=== PATIENT | male | born 1950 | race Caucasian/White ===

== ENCOUNTER 2017-05-31 09:58 | Emergency (ER) | payer MEDICARE, OTHER ==
[2017-05-31 10:09] VITALS: BP 154/100
[2017-05-31] MEDS ORDERED: Sodium Chloride 0.9% 10 ML Syringe FLUSH PRN (10:19)
--- NOTE | 2017-05-31 11:30 | EDM.PDOC ---
ED HPI GENERAL MEDICAL PROBLEM - General Chief Complaint: Chest Pain Stated Complaint: CHEST PAIN/DISCOMFORT Time Seen by Provider: 05/31/17 10:05 Source of Information: Reports: Patient History Limitations: Reports: No Limitations - History of Present Illness INITIAL COMMENTS - FREE TEXT/NARRATIVE: 67-year-old male presents for evaluation and treatment of chest discomfort. Patient reports that he started having chest discomfort around 1900 last night. He states that he had trouble sleeping due to anxiety associated with this chest discomfort. Reports at the time that the chest discomfort started he was sitting in his recliner. Its worse rates the pain is at 3 or 4 out of 10. Currently states the pain is now 1 or 2. Reports the chest pain does not radiate into his back or neck. He denies any nausea, vomiting, diaphoresis, lightheadedness, dizziness, syncope or abdominal pain. He is reporting pain in his bilateral arms and low back. He attributes this to lifting yesterday. Reports that he was lifting at least 40 50 pound containers of feed yesterday. He did not experience any chest pain yesterday when he was doing this. Patient reports he has a significant cardiac history to seen in our ER 2015. He was transferred for to [place]. He states that he had 2 angiograms done but did not have any stents placed. He states that he had a clot which resolved with heparin. He has since seen cardiology and last visit with cardiology was on February 28. He has not had any recent stress test. Left Chest Pain Score (Numeric/FACES): 2 - Related Data Allergies Allergy/AdvReac Type Severity Reaction Status Date / Time Penicillins Allergy Rash Verified 05/31/17 10:09 shellfish derived Allergy Hives Verified 05/31/17 10:09 Home Meds: Home Meds Hydrochlorothiazide 25 mg PO DAILY 01/29/16 [History] Metoprolol Succinate [Toprol XL] 25 mg PO DAILY 01/29/16 [History] Clopidogrel [Plavix] 75 mg PO DAILY 05/31/17 [History] Lisinopril 5 mg PO DAILY 05/31/17 [History] Magnesium Oxide 400 mg PO DAILY 05/31/17 [History] Nitroglycerin [Nitrostat] 0.4 mg SL ASDIRECTED 05/31/17 [History] Pantoprazole 20 mg PO DAILY 05/31/17 [History] Ubidecarenone [Co Q-10] 30 mg PO DAILY 05/31/17 [History] atorvaSTATin [Lipitor] 40 mg PO DAILY 05/31/17 [History] Past Medical History HEENT History: Reports: Cataract Cardiovascular History: Reports: CAD, High Cholesterol, Hypertension, [place] Gastrointestinal History: Reports: GERD Genitourinary History: Reports: BPH Musculoskeletal History: Reports: Back Pain, Chronic Neurological History: Reports: Migraines, Other (See Below) Psychiatric History: Reports: Depression - Past Surgical History HEENT Surgical History: Reports: Cataract Surgery, Tonsillectomy Cardiovascular Surgical History: Reports: Other (See Below) Other Cardiovascular Surgeries/Procedures: angiogram x2 Male Surgical History: Reports: Other (See Below) Social & Family History - Tobacco Use Smoking Status *Q: Never Smoker Years of Tobacco use: 30 Packs/Tins Daily: 0.5 Second Hand Smoke Exposure: No - Caffeine Use Caffeine Use: Reports: Coffee - Alcohol Use Days Per Week of Alcohol Use: 0 - Recreational Drug Use Recreational Drug Use: No - Living Situation & Occupation Living situation: Reports: Single, Alone Occupation: Employed ED ROS GENERAL - Review of Systems Review Of Systems: See Below Constitutional: Denies: Fever Respiratory: Denies: Shortness of Breath, Cough Cardiovascular: Reports: Chest Pain ("discomfort") GI/Abdominal: Denies: Abdominal Pain, Nausea, Vomiting Musculoskeletal: Reports: Arm Pain (bilateral). Denies: Neck Pain, Back Pain Neurological: Denies: Headache, Syncope ED EXAM, GENERAL - Physical Exam Exam: See Below Exam Limited By: No Limitations General Appearance: Alert, WD/WN, No Apparent Distress Eye Exam: Bilateral Eye: Normal Inspection Ears: Normal External Exam Nose: Normal Inspection Throat/Mouth: Normal Inspection, Normal Lips, Normal Voice, No Airway Compromise Neck: Normal Inspection Respiratory/Chest: No Respiratory Distress, Lungs Clear, Normal Breath Sounds Cardiovascular: Normal Peripheral Pulses, Regular Rate, Rhythm, No Murmur Peripheral Pulses: 3+: Radial (L), Radial (R), Dorsalis Pedis (L), Dorsalis Pedis (R) GI/Abdominal: Normal Bowel Sounds, Soft, Non-Tender Extremities: Normal Inspection Neurological: Alert, Oriented, Normal Cognition Psychiatric: Normal Affect, Normal Mood Skin Exam: Warm, Dry, Normal Color Course - Vital Signs Last Recorded V/S: Last Vital Signs Temp 36.6 C 05/31/17 10:02 Pulse 82 05/31/17 10:02 Resp 16 05/31/17 10:02 BP 154/100 H 05/31/17 10:02 Pulse Ox 96 05/31/17 10:02 - Orders/Labs/Meds Orders: Active Orders 24 hr Category Date Time Status Cardiac Monitoring [RC] . DIRECTED Care 05/31/17 10:18 Active EKG Documentation Completion [RC] ASDIRECTED Care 05/31/17 10:19 Active Peripheral IV Care [RC] . DIRECTED Care 05/31/17 10:19 Active Peripheral IV Insertion Adult [OM.PC] Routine Oth 05/31/17 10:19 Ordered EKG 12 Lead [EK] Stat Ther 05/31/17 10:18 Ordered Labs: Laboratory Tests 05/31/17 05/31/17 05/31/17 Range/Units 10:08 10:08 10:08 WBC 8.60 (4.23-9.07) K/mm3 RBC 5.28 (4.63-6.08) M/mm3 Hgb 16.1 (13.7-17.5) gm/L Hct 46.1 (40.1-51.0) % MCV 87.3 (79.0-92.2) fl MCH 30.5 (25.7-32.2) pg MCHC 34.9 (32.2-35.5) g/dl RDW Std Deviation 44.0 H (35.1-43.9) fL Plt Count 274 (163-337) K/mm3 MPV 10.3 (9.4-12.3) fl Neut % (Auto) 68.3 H (34.0-67.9) % Lymph % (Auto) 21.4 L (21.8-53.1) % [place] % (Auto) 9.3 (5.3-12.2) % Eos % (Auto) 0.7 L (0.8-7.0) Baso % (Auto) 0.2 (0.1-1.2) % Neut # (Auto) 5.87 H (1.78-5.38) K/mm3 Lymph # (Auto) 1.84 (1.32-3.57) K/mm3 [place] # (Auto) 0.80 (0.30-0.82) K/mm3 Eos # (Auto) 0.06 (0.04-0.54) K/mm3 Baso # (Auto) 0.02 (0.01-0.08) K/mm3 PT 10.7 (8.0-13.0) SECONDS INR 0.98 APTT 26 (22-36) SECONDS D-Dimer, Quantitative (0.19-0.59) mg/L Sodium 135 L (136-145) mEq/L Potassium 3.8 (3.5-5.1) mEq/L Chloride 102 (98-107) mEq/L Carbon Dioxide 23 (21-32) mEq/L Anion Gap 13.8 (5-15) BUN 16 (7-18) mg/dL Creatinine 1.1 (0.7-1.3) mg/dL Est Cr Clr Drug Dosing 62.18 mL/min Estimated GFR (MDRD) > 60 (>60) mL/min BUN/Creatinine Ratio 14.5 (14-18) Glucose 107 (80-115) mg/dL Calcium 9.0 (8.5-10.1) mg/dL Total Bilirubin 0.6 (0.2-1.0) mg/dL AST 29 (15-37) U/L ALT 38 (16-63) U/L Alkaline Phosphatase 58 (46-116) U/L CK-MB (CK-2) 5.1 H (0-3.6) ng/ml Troponin I < 0.017 (0.00-0.056) ng/mL Total Protein 7.3 (6.4-8.2) g/dl Albumin 3.8 (3.4-5.0) g/dl Globulin 3.5 gm/dL Albumin/Globulin Ratio 1.1 (1-2) 05/31/17 Range/Units 10:08 WBC (4.23-9.07) K/mm3 RBC (4.63-6.08) M/mm3 Hgb (13.7-17.5) gm/L Hct (40.1-51.0) % MCV (79.0-92.2) fl MCH (25.7-32.2) pg MCHC (32.2-35.5) g/dl RDW Std Deviation (35.1-43.9) fL Plt Count (163-337) K/mm3 MPV (9.4-12.3) fl Neut % (Auto) (34.0-67.9) % Lymph % (Auto) (21.8-53.1) % [place] % (Auto) (5.3-12.2) % Eos % (Auto) (0.8-7.0) Baso % (Auto) (0.1-1.2) % Neut # (Auto) (1.78-5.38) K/mm3 Lymph # (Auto) (1.32-3.57) K/mm3 [place] # (Auto) (0.30-0.82) K/mm3 Eos # (Auto) (0.04-0.54) K/mm3 Baso # (Auto) (0.01-0.08) K/mm3 PT (8.0-13.0) SECONDS INR APTT (22-36) SECONDS D-Dimer, Quantitative 0.41 (0.19-0.59) mg/L Sodium (136-145) mEq/L Potassium (3.5-5.1) mEq/L Chloride (98-107) mEq/L Carbon Dioxide (21-32) mEq/L Anion Gap (5-15) BUN (7-18) mg/dL Creatinine (0.7-1.3) mg/dL Est Cr Clr Drug Dosing mL/min Estimated GFR (MDRD) (>60) mL/min BUN/Creatinine Ratio (14-18) Glucose (80-115) mg/dL Calcium (8.5-10.1) mg/dL Total Bilirubin (0.2-1.0) mg/dL AST (15-37) U/L ALT (16-63) U/L Alkaline Phosphatase (46-116) U/L CK-MB (CK-2) (0-3.6) ng/ml Troponin I (0.00-0.056) ng/mL Total Protein (6.4-8.2) g/dl Albumin (3.4-5.0) g/dl Globulin gm/dL Albumin/Globulin Ratio (1-2) Meds: Medications Discontinued Medications Generic Name Dose Route Start Last Admin Trade Name Freq PRN Reason Stop Dose Admin Sodium Chloride 10 ml 05/31/17 10:19 Saline Flush FLUSH ASDIRECTED PRN Keep Vein Open - Radiology Interpretation Free Text/Narrative:: Chest: Frontal view of the chest was obtained. Comparison: Prior chest x-ray of 01/29/16. Heart size is normal. Tortuous thoracic aorta is seen. Lungs are clear. Old left clavicle fracture is noted. Impression: 1. Incidental findings. Nothing acute is appreciated on frontal chest x-ray. - Re-Assessments/Exams Free Text/Narrative Re-Assessment/Exam: 05/31/17 11:44 I reviewed the labs, EKG and imaging with the patient. I feel that this is likely chest wall in origin likely from lifting yesterday. We will discharge him home. Discharge instructions as documented. Departure - Departure Time of Disposition: 11:44 Disposition: Home, Self-Care 01 Condition: Good Clinical Impression: Chest wall pain Instructions: Chest Wall Pain, [id number] Referrals: Caroline Montes MD [Primary Care Provider] - Forms: ED Department Discharge Additional Instructions: [id number] Tylenol as needed for pain relief. May also use heat to the sore areas for additional pain relief. Follow-up with your primary care provider within 2 weeks for recheck of your symptoms. Please return to the ER if your symptoms change or worsen. - My Orders Last 24 Hours: My Active Orders 05/31/17 10:18 Cardiac Monitoring [RC] . DIRECTED EKG 12 Lead [EK] Stat 05/31/17 10:19 EKG Documentation Completion [RC] ASDIRECTED Peripheral IV Care [RC] . DIRECTED Peripheral IV Insertion Adult [OM.PC] Routine - Assessment/Plan Last 24 Hours: My Active Orders 05/31/17 10:18 Cardiac Monitoring [RC] . DIRECTED EKG 12 Lead [EK] Stat 05/31/17 10:19 EKG Documentation Completion [RC] ASDIRECTED Peripheral IV Care [RC] . DIRECTED Peripheral IV Insertion Adult [OM.PC] Routine
--- NOTE | 2017-05-31 12:50 | CR ---
Chest: Frontal view of the chest was obtained. Comparison: Prior chest x-ray of 01/29/16. Heart size is normal. Tortuous thoracic aorta is seen. Lungs are clear. Old left clavicle fracture is noted. Impression: 1. Incidental findings. Nothing acute is appreciated on frontal chest x-ray. Diagnostic code #2
== END 2017-05-31 11:58 | disposition home or self-care (01) ==
LOC: JD.ED 09:58
DX: R07.89 Other chest pain (principal); I25.2 Old myocardial infarction; E78.00 Pure hypercholesterolemia, unspecified; K21.9 Gastro-esophageal reflux disease without esophagitis; Z88.0 Allergy status to penicillin; Z91.013 Allergy to seafood; Z79.899 Other long term (current) drug therapy
CPT/HCPCS: 36415; 71045; 71045-26; 80053; 82553; 84484; 85025; 85379; 85610; 85730; 93005; 93010; 99284; 99285-25

== ENCOUNTER 2019-07-01 10:36 | Emergency (ER) | payer MEDICARE, OTHER ==
--- NOTE | 2019-07-01 13:12 | EDM.PDOC ---
ED HPI GENERAL MEDICAL PROBLEM - General Chief Complaint: Cardiovascular Problem Stated Complaint: CHEST TIGHTNESS/SHAKINESS Time Seen by Provider: 07/01/19 10:50 Source of Information: Reports: Patient History Limitations: Reports: No Limitations - History of Present Illness INITIAL COMMENTS - FREE TEXT/NARRATIVE: The patient presents with some mild chest pain and shortness of breath. He unloaded lots of cow feed yesterday and has some mild soreness in his chest. He has no fever, chills or cough. He has no history of heart disease. He has no abdominal pain, nausea or vomiting. He has a tremor for months. He did try some THC but it did not help. He is seeing a neurologist in September. He has calving to do before then. Onset: Gradual Duration: Day(s): Location: Reports: Chest Quality: Reports: Ache (soreness) Severity: Mild Improves with: Reports: None Worsens with: Reports: None Associated Symptoms: Reports: Chest Pain, Shortness of Breath. Denies: Cough, Fever/Chills, Headaches, Nausea/Vomiting Chest Pain Score (Numeric/FACES): 1 - Related Data Allergies Allergy/AdvReac Type Severity Reaction Status Date / Time Penicillins Allergy Rash Verified 07/01/19 10:55 shellfish derived Allergy Hives Verified 07/01/19 10:55 Home Meds: Home Meds Hydrochlorothiazide 25 mg PO DAILY 01/29/16 [History] Metoprolol Succinate [Toprol XL] 25 mg PO DAILY 01/29/16 [History] Clopidogrel [Plavix] 75 mg PO DAILY 05/31/17 [History] Lisinopril 5 mg PO DAILY 05/31/17 [History] Magnesium Oxide 400 mg PO DAILY 05/31/17 [History] Nitroglycerin [Nitrostat] 0.4 mg SL ASDIRECTED 05/31/17 [History] Pantoprazole 20 mg PO DAILY 05/31/17 [History] atorvaSTATin [Lipitor] 40 mg PO DAILY 05/31/17 [History] Fish Oil/[place]-3 Fatty Acids [Fish Oil 1,000 MG] 1,000 mg PO BID 11/20/17 [ History] Hemp Oil 20 mg PO DAILY 07/01/19 [History] Primidone 50 mg PO DAILY #30 tablet 07/01/19 [Rx] Propranolol [Inderal LA] 80 mg PO DAILY #30 cap.er 07/01/19 [Rx] Past Medical History HEENT History: Reports: Cataract, Impaired Vision Other HEENT History: Wears glasses Cardiovascular History: Reports: CAD, High Cholesterol, Hypertension, [place] Gastrointestinal History: Reports: GERD Genitourinary History: Reports: BPH Musculoskeletal History: Reports: Arthritis, Back Pain, Chronic, Fracture Neurological History: Reports: Migraines, Other (See Below) Other Neuro History: tremors of unknown origin. Psychiatric History: Reports: Depression - Infectious Disease History Infectious Disease History: Reports: C-Difficile, Chicken Pox, Measles, Mumps - Past Surgical History HEENT Surgical History: Reports: Cataract Surgery, Tonsillectomy Cardiovascular Surgical History: Reports: Other (See Below) Other Cardiovascular Surgeries/Procedures: angiogram x2 Social & Family History - Tobacco Use Smoking Status *Q: Never Smoker Second Hand Smoke Exposure: No - Caffeine Use Caffeine Use: Reports: Coffee - Alcohol Use Days Per Week of Alcohol Use: 7 Number of Drinks Per Day: 4 Total Drinks Per Week: 28 - Recreational Drug Use Recreational Drug Use: No - Living Situation & Occupation Living situation: Reports: Single, Alone Occupation: Employed ED ROS GENERAL - Review of Systems Review Of Systems: See Below Constitutional: Reports: No Symptoms HEENT: Reports: No Symptoms Respiratory: Reports: Shortness of Breath Cardiovascular: Reports: Chest Pain Endocrine: Reports: No Symptoms GI/Abdominal: Reports: No Symptoms : Reports: No Symptoms Musculoskeletal: Reports: No Symptoms ED EXAM, GENERAL - Physical Exam Exam: See Below Exam Limited By: No Limitations General Appearance: Alert, No Apparent Distress Ears: Normal External Exam Nose: Normal Inspection Head: Atraumatic, Normocephalic Neck: Normal Inspection Respiratory/Chest: No Respiratory Distress, Lungs Clear, Normal Breath Sounds Cardiovascular: Regular Rate, Rhythm, No Edema, No Murmur GI/Abdominal: Soft, Non-Tender, No Organomegaly, No Mass Back Exam: Normal Inspection Neurological: Alert, Oriented, No Motor/Sensory Deficits, Other (Essential tremor to both hands) EKG INTERPRETATION EKG Date: 07/01/19 Time: 10:41 Rhythm: NSR Rate (Beats/Min): 76 Walker: Normal P-Wave: Present QRS: Normal ST-T: Normal QT: Normal Course - Vital Signs Last Recorded V/S: Last Vital Signs Temp 99.3 F 07/01/19 10:40 Pulse 76 07/01/19 12:00 Resp 18 07/01/19 12:00 BP 140/80 07/01/19 12:00 Pulse Ox 97 07/01/19 12:00 - Orders/Labs/Meds Orders: Active Orders 24 hr Category Date Time Status Cardiac Monitoring [RC] . DIRECTED Care 07/01/19 11:16 Active EKG Documentation Completion [RC] STAT Care 07/01/19 11:16 Active Labs: Laboratory Tests 07/01/19 07/01/19 Range/Units 10:45 10:45 WBC 8.75 (4.23-9.07) K/mm3 RBC 4.99 (4.63-6.08) M/mm3 Hgb 15.6 (13.7-17.5) gm/dl Hct 46.0 (40.1-51.0) % MCV 92.2 (79.0-92.2) fl MCH 31.3 (25.7-32.2) pg MCHC 33.9 (32.2-35.5) g/dl RDW Std Deviation 49.1 H (35.1-43.9) fL Plt Count 261 (163-337) K/mm3 MPV 9.6 (9.4-12.3) fl Neut % (Auto) 74.0 H (34.0-67.9) % Lymph % (Auto) 16.0 L (21.8-53.1) % [place] % (Auto) 8.5 (5.3-12.2) % Eos % (Auto) 0.6 L (0.8-7.0) Baso % (Auto) 0.3 (0.1-1.2) % Neut # (Auto) 6.48 H (1.78-5.38) K/mm3 Lymph # (Auto) 1.40 (1.32-3.57) K/mm3 [place] # (Auto) 0.74 (0.30-0.82) K/mm3 Eos # (Auto) 0.05 (0.04-0.54) K/mm3 Baso # (Auto) 0.03 (0.01-0.08) K/mm3 Sodium 133 L (136-145) mEq/L Potassium 4.1 (3.5-5.1) mEq/L Chloride 98 (98-107) mEq/L Carbon Dioxide 24 (21-32) mEq/L Anion Gap 15.1 H (5-15) BUN 19 H (7-18) mg/dL Creatinine 1.2 (0.7-1.3) mg/dL Est Cr Clr Drug Dosing 55.42 mL/min Estimated GFR (MDRD) 60 (>60) mL/min BUN/Creatinine Ratio 15.8 (14-18) Glucose 123 H (80-115) mg/dL Calcium 8.9 (8.5-10.1) mg/dL Magnesium 1.7 L (1.8-2.4) mg/dl Total Bilirubin 0.4 (0.2-1.0) mg/dL AST 66 H (15-37) U/L ALT 74 H (16-63) U/L Alkaline Phosphatase 52 (46-116) U/L Troponin I < 0.017 (0.00-0.056) ng/mL Total Protein 6.9 (6.4-8.2) g/dl Albumin 3.8 (3.4-5.0) g/dl Globulin 3.1 gm/dL Albumin/Globulin Ratio 1.2 (1-2) - Re-Assessments/Exams Free Text/Narrative Re-Assessment/Exam: 07/01/19 13:09 I ordered an IV saline lock, EKG and labs. His EKG shows a NSR with no acute changes. His CBC looks good. His Na was a little low at 133. His AST is elevated slightly at 66. His ALT is elevated at 74. His troponin is negative. I will get him on some propranolol and promidone. Departure - Departure Time of Disposition: 13:15 Disposition: Home, Self-Care 01 Condition: Good Clinical Impression: Atypical chest pain, Essential tremor Prescriptions: Primidone 50 mg PO DAILY #30 tablet Propranolol [Inderal LA] 80 mg PO DAILY #30 cap.er Referrals: Caroline Montes MD [Primary Care Provider] - 1 Week Additional Instructions: Do not take the metoprolol any more. Take the propranolol 80mg daily and then the promidone 50mg daily. This may take a few days to see any change. Follow up with your doctor because the dosages may need to be adjusted. Please return if you are worse. Sepsis Event Note - Evaluation Sepsis Screening Result: No Definite Risk - Focused Exam Vital Signs: Vital Signs Temp Pulse Resp BP Pulse Ox 07/01/19 12:00 76 18 140/80 97 07/01/19 10:40 99.3 F 80 24 H 164/99 H 96 Date Exam was Performed: 07/01/19 Time Exam was Performed: 13:06 - My Orders Last 24 Hours: My Active Orders 07/01/19 11:16 Cardiac Monitoring [RC] . DIRECTED EKG Documentation Completion [RC] STAT - Assessment/Plan Last 24 Hours: My Active Orders 07/01/19 11:16 Cardiac Monitoring [RC] . DIRECTED EKG Documentation Completion [RC] STAT
[2019-07-01 13:57] VITALS: BP 138/83; PULSE 74
== END 2019-07-01 13:45 | disposition home or self-care (01) ==
LOC: JD.ED 10:36
DX: R07.89 Other chest pain (principal); G25.0 Essential tremor; I10 Essential (primary) hypertension; E78.00 Pure hypercholesterolemia, unspecified; I25.2 Old myocardial infarction; K21.9 Gastro-esophageal reflux disease without esophagitis; F32.9 Major depressive disorder, single episode, unspecified; Z79.899 Other long term (current) drug therapy; Z88.0 Allergy status to penicillin; Z91.013 Allergy to seafood
CPT/HCPCS: 36415; 80053; 83735; 84484; 85025; 93005; 99285-25

== ENCOUNTER 2019-11-18 10:42 | Emergency (ER) | payer MEDICARE, OTHER ==
[2019-11-18 10:57] VITALS: BP 131/84; PULSE 76
[2019-11-18] MEDS ORDERED: Oxymetazoline 0.05% Nasal Spray 30 ML Bottle NAS ONE (11:05)
[2019-11-18] MEDS ORDERED: LORazepam 2 MG/ML SDV IVPUSH ONE (11:08)
[2019-11-18] MEDS ORDERED: Sodium Chloride 0.9% 1,000 ML IV SCH (11:15)
--- NOTE | 2019-11-18 12:33 | EDM.PDOC ---
ED HPI GENERAL MEDICAL PROBLEM - General Chief Complaint: ENT Problem Stated Complaint: [facility] Time Seen by Provider: 11/18/19 10:58 Source of Information: Reports: Patient, EMS, RN Notes Reviewed - History of Present Illness INITIAL COMMENTS - FREE TEXT/NARRATIVE: 69 yr old male comes in by ambulance with onset of L nose bleed about 2 hr ago. Unable to control at home. No prior nose bleed problems. No recent cough or trouble breathing. No recent fever or chills. States "I drink a lot of whisky". - Related Data Allergies Allergy/AdvReac Type Severity Reaction Status Date / Time shellfish derived Allergy Hives Verified 11/18/19 10:49 Home Meds: Home Meds Hydrochlorothiazide 25 mg PO DAILY 01/29/16 [History] Metoprolol Succinate [Toprol XL] 25 mg PO DAILY 01/29/16 [History] Clopidogrel [Plavix] 75 mg PO DAILY 05/31/17 [History] Lisinopril 5 mg PO DAILY 05/31/17 [History] Magnesium Oxide 400 mg PO DAILY 05/31/17 [History] Nitroglycerin [Nitrostat] 0.4 mg SL ASDIRECTED 05/31/17 [History] Pantoprazole 20 mg PO DAILY 05/31/17 [History] atorvaSTATin [Lipitor] 40 mg PO DAILY 05/31/17 [History] Fish Oil/[place]-3 Fatty Acids [Fish Oil 1,000 MG] 1,000 mg PO BID 11/20/17 [History] Hemp Oil 20 mg PO DAILY 07/01/19 [History] Primidone 50 mg PO DAILY #30 tablet 07/01/19 [Rx] Propranolol [Inderal LA] 80 mg PO DAILY #30 cap.er 07/01/19 [Rx] LORazepam [Ativan] 0.5 mg PO BEDTIME PRN #10 tablet 11/18/19 [Rx] Past Medical History HEENT History: Reports: Cataract, Impaired Vision Other HEENT History: Wears glasses Cardiovascular History: Reports: CAD, High Cholesterol, Hypertension, [place] Gastrointestinal History: Reports: GERD Genitourinary History: Reports: BPH Musculoskeletal History: Reports: Arthritis, Back Pain, Chronic, Fracture Neurological History: Reports: Migraines, Other (See Below) Other Neuro History: tremors of unknown origin. Psychiatric History: Reports: Anxiety, Depression - Infectious Disease History Infectious Disease History: Reports: C-Difficile, Chicken Pox, Measles, Mumps - Past Surgical History HEENT Surgical History: Reports: Cataract Surgery, Tonsillectomy Cardiovascular Surgical History: Reports: Other (See Below) Other Cardiovascular Surgeries/Procedures: angiogram x2 Other Musculoskeletal Surgeries/Procedures:: L) ankle Fx with repair. Social & Family History - Tobacco Use Smoking Status *Q: Never Smoker Second Hand Smoke Exposure: No - Caffeine Use Caffeine Use: Reports: Coffee - Alcohol Use Days Per Week of Alcohol Use: 7 Number of Drinks Per Day: 10 Total Drinks Per Week: 70 - Recreational Drug Use Recreational Drug Use: No - Living Situation & Occupation Living situation: Reports: Single, Alone Occupation: Employed ED ROS ENT - Review of Systems Review Of Systems: See Below Constitutional: Denies: Fever, Chills HEENT: Reports: Nosebleed. Denies: Sinus Problem Respiratory: Denies: Shortness of Breath, Cough Cardiovascular: Denies: Chest Pain GI/Abdominal: Denies: Abdominal Pain, Nausea, Vomiting Musculoskeletal: Reports: No Symptoms Skin: Reports: No Symptoms Neurological: Reports: No Symptoms ED EXAM, ENT - Physical Exam Exam: See Below General Appearance: Alert, No Apparent Distress Eye Exam: Bilateral Eye: PERRL Nose: Active Bleeding (L nares) Mouth/Throat: Other (there was some dried blood post throat on arrival) Head: Atraumatic Neck: Supple Respiratory/Chest: No Respiratory Distress, Lungs Clear, Normal Breath Sounds Cardiovascular: Regular Rate, Rhythm GI/Abdominal: Soft, Non-Tender Extremities: Normal Inspection. No: Pedal Edema, Leg Pain Neurological: Alert, No Motor/Sensory Deficits Skin: Warm, Dry, Normal Color, No Rash ED ENT PROCEDURES - Epistaxis Procedure Indication: Epistaxis Site of bleeding: Left Nare Clearing of clots: Patient Blew Nose Topical Meds: Phenylephrine, Topical Cocaine Course - Vital Signs Last Recorded V/S: Last Vital Signs Temp 97.2 F 11/18/19 10:42 Pulse 76 11/18/19 10:42 Resp 20 11/18/19 10:42 BP 131/84 11/18/19 10:42 Pulse Ox 95 11/18/19 10:42 - Orders/Labs/Meds Labs: Laboratory Tests 11/18/19 11/18/19 Range/Units 11:15 11:15 WBC 6.27 (4.23-9.07) K/mm3 RBC 4.58 L (4.63-6.08) M/mm3 Hgb 15.3 (13.7-17.5) gm/dl Hct 44.9 (40.1-51.0) % MCV 98.0 H D (79.0-92.2) fl MCH 33.4 H (25.7-32.2) pg MCHC 34.1 (32.2-35.5) g/dl RDW Std Deviation 50.0 H (35.1-43.9) fL Plt Count 212 (163-337) K/mm3 MPV 9.7 (9.4-12.3) fl Neut % (Auto) 65.4 (34.0-67.9) % Lymph % (Auto) 20.4 L (21.8-53.1) % Terry % (Auto) 11.8 (5.3-12.2) % Eos % (Auto) 1.3 (0.8-7.0) Baso % (Auto) 0.5 (0.1-1.2) % Neut # (Auto) 4.10 (1.78-5.38) K/mm3 Lymph # (Auto) 1.28 L (1.32-3.57) K/mm3 Terry # (Auto) 0.74 (0.30-0.82) K/mm3 Eos # (Auto) 0.08 (0.04-0.54) K/mm3 Baso # (Auto) 0.03 (0.01-0.08) K/mm3 Sodium 134 L (136-145) mEq/L Potassium 3.9 (3.5-5.1) mEq/L Chloride 95 L (98-107) mEq/L Carbon Dioxide 25 (21-32) mEq/L Anion Gap 17.9 H (5-15) BUN 18 (7-18) mg/dL Creatinine 1.1 (0.7-1.3) mg/dL Est Cr Clr Drug Dosing 60.45 mL/min Estimated GFR (MDRD) > 60 (>60) mL/min BUN/Creatinine Ratio 16.4 (14-18) Glucose 136 H (80-115) mg/dL Calcium 9.1 (8.5-10.1) mg/dL Total Bilirubin 0.7 (0.2-1.0) mg/dL AST 135 H (15-37) U/L ALT 143 H (16-63) U/L Alkaline Phosphatase 82 (46-116) U/L Total Protein 6.8 (6.4-8.2) g/dl Albumin 3.3 L (3.4-5.0) g/dl Globulin 3.5 gm/dL Albumin/Globulin Ratio 0.9 L (1-2) Ethyl Alcohol 0.00 (0.00) gm% Meds: Medications Discontinued Medications Generic Name Dose Route Start Last Admin Trade Name Freq PRN Reason Stop Dose Admin Cocaine HCl 4 ml 11/18/19 11:06 11/18/19 11:22 Cocaine Hcl TOP 11/18/19 11:07 4 ml ONETIME ONE Administration Sodium Chloride 1,000 mls @ 150 mls/hr 11/18/19 11:15 11/18/19 12:20 Normal Saline IV 999 mls/hr ASDIRECTED ANABELLA Infusion Lorazepam 1 mg 11/18/19 11:08 11/18/19 11:17 Ativan IVPUSH 11/18/19 11:09 1 mg ONETIME ONE Administration Oxymetazoline HCl 2 ml 11/18/19 11:05 11/18/19 11:20 Nasal Decongestant [place] JJ 11/18/19 11:06 2 spray ONETIME ONE Administration - Re-Assessments/Exams Free Text/Narrative Re-Assessment/Exam: 11/18/19 12:36 Upon removal of cocaine soaked cotton ball a short time ago no further bleeding. Do not see a site to cauterize at that time. Will watch him for awhile, blood alcohol is zero. Have given ativan 1 mg IV. He has had BP readings in the 90's, will bolus remainder of NS, get him something to eat. Departure - Departure Time of Disposition: 13:27 Disposition: Home, Self-Care 01 Condition: Fair Clinical Impression: Epistaxis - Discharge Information Prescriptions: LORazepam [Ativan] 0.5 mg PO BEDTIME PRN #10 tablet PRN Reason: Anxiety Instructions: Nosebleed, [id number] Referrals: PCP,None [Ordering Only Provider] - Forms: ED Department Discharge Additional Instructions: Pressure to soft part of nose if needed for any further bleeding. Ativan 0.5 mg in the evening or towards bedtime to help you stop drinking alcohol. [facility] Follow up with your regular medical provider as needed. Return to ED as needed if symptoms worsening in any way. Sepsis Event Note (ED) - Evaluation Sepsis Screening Result: No Definite Risk
== END 2019-11-18 13:50 | disposition home or self-care (01) ==
LOC: JD.ED 10:42
DX: R04.0 Epistaxis (principal); I25.2 Old myocardial infarction; I10 Essential (primary) hypertension; I25.10 Atherosclerotic heart disease of native coronary artery without angina pectoris; E78.00 Pure hypercholesterolemia, unspecified; F41.9 Anxiety disorder, unspecified; F32.9 Major depressive disorder, single episode, unspecified; Z98.890 Other specified postprocedural states; Z91.013 Allergy to seafood; Z79.02 Long term (current) use of antithrombotics/antiplatelets; Z79.899 Other long term (current) drug therapy
CPT/HCPCS: 36415; 80053; 80307; 85025; 96361; 96374; 99283; A9270; J2060; J7030; 30901

== ENCOUNTER 2019-11-20 21:31 | Emergency (ER) | payer MEDICARE, OTHER ==
[2019-11-20 21:37] VITALS: BP 141/98; PULSE 72
[2019-11-20] MEDS ORDERED: Oxymetazoline 0.05% Nasal Spray 30 ML Bottle NAS ONE (21:52)
--- NOTE | 2019-11-20 22:16 | EDM.PDOC ---
ED HPI GENERAL MEDICAL PROBLEM - General Chief Complaint: ENT Problem Stated Complaint: [facility] Time Seen by Provider: 11/20/19 21:46 Source of Information: Reports: Patient, RN Notes Reviewed - History of Present Illness INITIAL COMMENTS - FREE TEXT/NARRATIVE: 69 yr old male comes in with nosebleed. Has been bleeding both nares. Had similar L sided nose bleed 2 days ago. Is on plavix. Was told to rest and take it easy for a few days but has been busy haying. States he sneezed this evening and that is when the bleeding started. No bleeding yesterday. Not currently running down his throat. - Related Data Allergies Allergy/AdvReac Type Severity Reaction Status Date / Time shellfish derived Allergy Severe Hives Verified 11/20/19 21:42 Home Meds: Home Meds Hydrochlorothiazide 25 mg PO DAILY 01/29/16 [History] Clopidogrel [Plavix] 75 mg PO DAILY 05/31/17 [History] Lisinopril 10 mg PO DAILY 05/31/17 [History] Magnesium Oxide 400 mg PO DAILY 05/31/17 [History] Nitroglycerin [Nitrostat] 0.4 mg SL ASDIRECTED 05/31/17 [History] Pantoprazole 20 mg PO DAILY 05/31/17 [History] atorvaSTATin [Lipitor] 20 mg PO DAILY 05/31/17 [History] Fish Oil/[place]-3 Fatty Acids [Fish Oil 1,000 MG] 1,000 mg PO BID 11/20/17 [History] Hemp Oil 20 mg PO DAILY 07/01/19 [History] LORazepam [Ativan] 0.5 mg PO BEDTIME PRN #10 tablet 11/18/19 [Rx] Aspirin/Acetaminophen/Caffeine [Excedrin Migraine Caplet] 2 tab PO ASDIRECTED 11/20/19 [History] Propranolol [Inderal LA] 160 mg PO DAILY 11/20/19 [History] Sertraline [Zoloft] 50 mg PO DAILY 11/20/19 [History] Tamsulosin [Flomax] 0.4 mg PO ASDIRECTED 11/20/19 [History] diphenhydrAMINE [Benadryl] 50 mg PO BEDTIME PRN 11/20/19 [History] Past Medical History HEENT History: Reports: Cataract, Impaired Vision Other HEENT History: Wears glasses Cardiovascular History: Reports: CAD, High Cholesterol, Hypertension, [place] Gastrointestinal History: Reports: GERD Genitourinary History: Reports: BPH Musculoskeletal History: Reports: Arthritis, Back Pain, Chronic, Fracture Neurological History: Reports: Migraines, Other (See Below) Other Neuro History: tremors of unknown origin. Psychiatric History: Reports: Anxiety, Depression - Infectious Disease History Infectious Disease History: Reports: C-Difficile, Chicken Pox, Measles, Mumps - Past Surgical History HEENT Surgical History: Reports: Cataract Surgery, Tonsillectomy Cardiovascular Surgical History: Reports: Other (See Below) Other Cardiovascular Surgeries/Procedures: angiogram x2 Other Musculoskeletal Surgeries/Procedures:: L) ankle Fx with repair. Social & Family History - Tobacco Use Smoking Status *Q: Never Smoker - Caffeine Use Caffeine Use: Reports: Coffee - Recreational Drug Use Recreational Drug Use: No - Living Situation & Occupation Living situation: Reports: Single, Alone Occupation: Employed ED ROS ENT - Review of Systems Review Of Systems: See Below Constitutional: Denies: Fever, Chills, Diaphoresis HEENT: Reports: Nosebleed Respiratory: Denies: Shortness of Breath, Wheezing, Cough Cardiovascular: Denies: Chest Pain GI/Abdominal: Denies: Abdominal Pain, Nausea, Vomiting Musculoskeletal: Reports: No Symptoms Skin: Reports: No Symptoms Neurological: Reports: No Symptoms ED EXAM, ENT - Physical Exam Exam: See Below General Appearance: Alert, No Apparent Distress Eye Exam: Bilateral Eye: PERRL Nose: Dried Blood. No: Active Bleeding Mouth/Throat: Normal Inspection, Other (no blood post pharynx at time of exam) Neck: Supple Respiratory/Chest: No Respiratory Distress, Lungs Clear, Normal Breath Sounds. No: Respiratory Distress Cardiovascular: Regular Rate, Rhythm Extremities: Normal Inspection, Normal Range of Motion. No: Pedal Edema, Leg Pain Skin: Warm, Dry, Normal Color, No Rash ED ENT PROCEDURES - Epistaxis Procedure Indication: Epistaxis Recent anticoagulants/antiplatlets: Yes Site of bleeding: Left Nare Clearing of clots: Patient Blew Nose Topical Meds: Phenylephrine, Topical Cocaine Chemical cautery: Silver Nitrate Topical Course - Vital Signs Last Recorded V/S: Last Vital Signs Temp 99.0 F 11/20/19 21:34 Pulse 72 11/20/19 21:34 Resp 20 11/20/19 21:34 BP 141/98 H 08/06/20 21:34 Pulse Ox 90 L 11/20/19 21:34 - Orders/Labs/Meds Meds: Medications Discontinued Medications Generic Name Dose Route Start Last Admin Trade Name Dilma KRUEGER Reason Stop Dose Admin Cocaine HCl 4 ml 11/20/19 21:52 11/20/19 22:01 Cocaine Hcl TOP 11/20/19 21:53 4 ml ONETIME ONE Administration Oxymetazoline HCl 2 ml 11/20/19 21:52 11/20/19 22:01 Nasal Decongestant [place] JJ 11/20/19 21:53 2 ml ONETIME ONE Administration - Re-Assessments/Exams Free Text/Narrative Re-Assessment/Exam: 11/21/19 03:29 area of bleeding L nares cauterized with silver nitrate, no further bleeding, discharge instr. as documented. Departure - Departure Time of Disposition: 00:26 Disposition: Home, Self-Care 01 Condition: Fair Clinical Impression: Epistaxis - Discharge Information Instructions: Nosebleed, [id number] Referrals: Caroline Montes MD [Primary Care Provider] - Forms: ED Department Discharge Additional Instructions: Hard pressure to soft part of nose for any further bleeding. Do not take the plavix for 4 days. This will take 3 to 4 days to heal. Do not work today and preferably not tomorrow. Drink plenty of water to maintain hydration. Sepsis Event Note (ED) - Evaluation Sepsis Screening Result: No Definite Risk - Focused Exam Vital Signs: Vital Signs Temp Pulse Resp BP Pulse Ox 11/20/19 21:34 99.0 F 72 20 141/98 H 90 L
== END 2019-11-21 00:35 | disposition home or self-care (01) ==
LOC: JD.ED 21:31 → SUPCPDRO 21:31 → JD.ED 11-21 00:35
DX: R04.0 Epistaxis (principal); I25.10 Atherosclerotic heart disease of native coronary artery without angina pectoris; E78.00 Pure hypercholesterolemia, unspecified; I10 Essential (primary) hypertension; I25.2 Old myocardial infarction; K21.9 Gastro-esophageal reflux disease without esophagitis; M19.90 Unspecified osteoarthritis, unspecified site; F41.9 Anxiety disorder, unspecified; F32.9 Major depressive disorder, single episode, unspecified; Z91.013 Allergy to seafood; Z79.82 Long term (current) use of aspirin; Z79.02 Long term (current) use of antithrombotics/antiplatelets; Z79.899 Other long term (current) drug therapy
CPT/HCPCS: 30901; 99284; A9270; 99282

== ENCOUNTER 2020-09-02 16:33 | Emergency (ER) | payer MEDICARE, OTHER ==
[2020-09-02 17:15] VITALS: BP 153/100; PULSE 74
[2020-09-02] MEDS ORDERED: Sodium Chloride 0.9% 10 ML Syringe FLUSH PRN (17:59)
--- NOTE | 2020-09-02 18:07 | EDM.PDOCBH ---
ED HPI GENERAL MEDICAL PROBLEM - General Chief Complaint: Drug or Alcohol Abuse Stated Complaint: DETOX Time Seen by Provider: 09/02/20 17:15 Source of Information: Reports: Patient History Limitations: Reports: No Limitations - History of Present Illness INITIAL COMMENTS - FREE TEXT/NARRATIVE: 70-year-old male presents the emergency department with the request for assistance in helping him to stop drinking. The patient states for the past year and a half he has been drinking heavy going through of 1.75 of whiskey every 1 to 2 days. States he has never been completely sober so he is unsure whether or not he has seizures when he detoxes. He states he has had some nausea and occasionally has diarrhea when he goes on heavy binges however he has no complaints right now. His last drink was at 1:00 this afternoon. He does carry a history of hypertension and he is on blood thinners due to a previous [place]. States he has not been eating much as he drinks throughout the day. I have ordered labs, EKG, and urine drug screen. I have also ordered for the patient to receive D5 LR as he is likely dehydrated. Abdomen Pain Score (Numeric/FACES): 2 - Related Data Allergies Allergy/AdvReac Type Severity Reaction Status Date / Time shellfish derived Allergy Severe Hives Verified 09/02/20 17:16 Home Meds: Home Meds Hydrochlorothiazide 25 mg PO DAILY 01/29/16 [History] Clopidogrel [Plavix] 75 mg PO DAILY 05/31/17 [History] Lisinopril 10 mg PO DAILY 05/31/17 [History] Magnesium Oxide 400 mg PO DAILY 05/31/17 [History] Nitroglycerin [Nitrostat] 0.4 mg SL ASDIRECTED 05/31/17 [History] Pantoprazole 20 mg PO DAILY 05/31/17 [History] atorvaSTATin [Lipitor] 20 mg PO DAILY 05/31/17 [History] Fish Oil/Whitharral-3 Fatty Acids [Fish Oil 1,000 MG] 1,000 mg PO BID 11/20/17 [History] Hemp Oil 20 mg PO DAILY 07/01/19 [History] LORazepam [Ativan] 0.5 mg PO BEDTIME PRN #10 tablet 11/18/19 [Rx] Aspirin/Acetaminophen/Caffeine [Excedrin Migraine Caplet] 2 tab PO ASDIRECTED 11/20/19 [History] Propranolol [Inderal LA] 160 mg PO DAILY 11/20/19 [History] Sertraline [Zoloft] 50 mg PO DAILY 11/20/19 [History] Tamsulosin [Flomax] 0.4 mg PO ASDIRECTED 11/20/19 [History] diphenhydrAMINE [Benadryl] 50 mg PO BEDTIME PRN 11/20/19 [History] Past Medical History HEENT History: Reports: Cataract, Impaired Vision Other HEENT History: Wears glasses Cardiovascular History: Reports: CAD, High Cholesterol, Hypertension, [place] Gastrointestinal History: Reports: GERD Genitourinary History: Reports: BPH Musculoskeletal History: Reports: Arthritis, Back Pain, Chronic, Fracture Neurological History: Reports: Migraines, Other (See Below) Other Neuro History: tremors of unknown origin. Psychiatric History: Reports: Anxiety, Depression - Infectious Disease History Infectious Disease History: Reports: C-Difficile, Chicken Pox, Measles, Mumps - Past Surgical History HEENT Surgical History: Reports: Cataract Surgery, Tonsillectomy Cardiovascular Surgical History: Reports: Other (See Below) Other Cardiovascular Surgeries/Procedures: angiogram x2 Other Musculoskeletal Surgeries/Procedures:: L) ankle Fx with repair. Social & Family History - Caffeine Use Caffeine Use: Reports: Coffee - Living Situation & Occupation Living situation: Reports: Single, Alone Occupation: Employed ED ROS GENERAL - Review of Systems Review Of Systems: Comprehensive ROS is negative, except as noted in HPI. ED EXAM, BEHAVIORAL HEALTH - Physical Exam Exam: See Below Exam Limited By: No Limitations General Appearance: Alert, WD/WN, No Apparent Distress Ears: Normal External Exam, Hearing Grossly Normal Nose: Normal Inspection Throat/Mouth: Normal Inspection, Normal Lips, Normal Voice, No Airway Compromise Head: Atraumatic Neck: Normal Inspection, Supple Respiratory/Chest: No Respiratory Distress, Lungs Clear, Normal Breath Sounds, No Accessory Muscle Use, Chest Non-Tender Cardiovascular: Normal Peripheral Pulses, Regular Rate, Rhythm, No Edema, No Murmur GI/Abdominal: Normal Bowel Sounds, Soft, Non-Tender, No Distention (Male) Exam: Deferred Rectal (Males) Exam: Deferred Back Exam: Normal Inspection Extremities: Normal Inspection Neurological: Alert, Normal Cognition, Oriented x 3 Psychiatric: Alert, Normal Affect, Normal Cognition, Normal Mood, Oriented Skin Exam: Warm, Dry, Intact, Normal color, No rash #1 Interpretation EKG Date: 09/02/20 Time: 18:07 Rhythm: NSR Rate (Beats/Min): 66 [place]: Normal P-Wave: Present QRS: Normal ST-T: Normal QT: Normal EKG Interpretation Comments: Per Dr. Sweet interpretation: Normal sinus rhythm rate 66; LPFB; no ST changes COURSE, BEHAVIORAL HEALTH COMP - Course Vital Signs: Last Vital Signs Temp 98.8 F 09/02/20 17:10 Pulse 74 09/02/20 17:10 Resp 20 09/02/20 17:10 BP 153/100 H 09/02/20 17:10 Pulse Ox 97 09/02/20 17:10 Orders, Labs, Meds: Active Orders 24 hr Category Date Time Status EKG Documentation Completion [RC] STAT Care 09/02/20 17:59 Active DRUG SCREEN, URINE [URCHEM] Stat Lab 09/02/20 19:35 Received UA RFX ARNOLD AND CULT IF INDIC [URIN] Stat Lab 09/02/20 19:35 Received Dextrose 5%-Lactated Ringers 1,000 ml Med 09/02/20 18:15 Active IV ASDIRECTED Sodium Chloride 0.9% [Saline Flush] Med 09/02/20 17:59 Active 10 ml FLUSH ASDIRECTED PRN Saline Lock Insert [OM.PC] Stat Oth 09/02/20 17:59 Ordered Medication Orders Dextrose/Lactated Ringer's (Dextrose 5%-Lactated Ringers) 1,000 mls @ 150 mls/hr IV ASDIRECTED ANABELLA Last Admin: 09/02/20 18:32 Dose: 150 mls/hr Documented by: LYNN Sodium Chloride (Sodium Chloride 0.9% 10 Ml Syringe) 10 ml FLUSH ASDIRECTED PRN PRN Reason: Keep Vein Open Last Admin: 09/02/20 18:32 Dose: 10 ml Documented by: LYNN Laboratory Tests 09/02/20 09/02/20 09/02/20 Range/Units 18:30 18:30 18:30 WBC 9.31 H (4.23-9.07) K/mm3 RBC 4.45 L (4.63-6.08) M/mm3 Hgb 14.6 (13.7-17.5) gm/dl Hct 43.8 (40.1-51.0) % MCV 98.4 H (79.0-92.2) fl MCH 32.8 H (25.7-32.2) pg MCHC 33.3 (32.2-35.5) g/dl RDW Std Deviation 48.7 H (35.1-43.9) fL Plt Count 155 L (163-337) K/mm3 MPV 9.8 (9.4-12.3) fl Neut % (Auto) 68.2 H (34.0-67.9) % Lymph % (Auto) 16.3 L (21.8-53.1) % [place] % (Auto) 12.2 (5.3-12.2) % Eos % (Auto) 2.6 (0.8-7.0) Baso % (Auto) 0.2 (0.1-1.2) % Neut # (Auto) 6.34 H (1.78-5.38) K/mm3 Lymph # (Auto) 1.52 (1.32-3.57) K/mm3 [place] # (Auto) 1.14 H (0.30-0.82) K/mm3 Eos # (Auto) 0.24 (0.04-0.54) K/mm3 Baso # (Auto) 0.02 (0.01-0.08) K/mm3 Sodium 138 (136-145) mEq/L Potassium 3.6 (3.5-5.1) mEq/L Chloride 101 (98-107) mEq/L Carbon Dioxide 28 (21-32) mEq/L Anion Gap 12.6 (5-15) BUN 27 H (7-18) mg/dL Creatinine 1.1 (0.7-1.3) mg/dL Est Cr Clr Drug Dosing 59.59 mL/min Estimated GFR (MDRD) > 60 (>60) mL/min BUN/Creatinine Ratio 24.5 H (14-18) Glucose 106 H (70-99) mg/dL Calcium 8.5 (8.5-10.1) mg/dL Magnesium 1.6 L (1.8-2.4) mg/dL Total Bilirubin 0.7 (0.2-1.0) mg/dL AST 80 H (15-37) U/L ALT 85 H (16-63) U/L Alkaline Phosphatase 60 (46-116) U/L Total Protein 6.7 (6.4-8.2) g/dl Albumin 3.1 L (3.4-5.0) g/dl Globulin 3.6 gm/dL Albumin/Globulin Ratio 0.9 L (1-2) TSH 3rd Generation 1.849 (0.358-3.74) uIU/mL Salicylates 0.7 L (2.8-20) mg/dL Acetaminophen 0 L (10-30) ug/mL Ethyl Alcohol 0.01 (0.00) gm% SARS-CoV-2 RNA (JANNA) (NEGATIVE) 09/02/20 Range/Units 18:34 WBC (4.23-9.07) K/mm3 RBC (4.63-6.08) M/mm3 Hgb (13.7-17.5) gm/dl Hct (40.1-51.0) % MCV (79.0-92.2) fl MCH (25.7-32.2) pg MCHC (32.2-35.5) g/dl RDW Std Deviation (35.1-43.9) fL Plt Count (163-337) K/mm3 MPV (9.4-12.3) fl Neut % (Auto) (34.0-67.9) % Lymph % (Auto) (21.8-53.1) % [place] % (Auto) (5.3-12.2) % Eos % (Auto) (0.8-7.0) Baso % (Auto) (0.1-1.2) % Neut # (Auto) (1.78-5.38) K/mm3 Lymph # (Auto) (1.32-3.57) K/mm3 [place] # (Auto) (0.30-0.82) K/mm3 Eos # (Auto) (0.04-0.54) K/mm3 Baso # (Auto) (0.01-0.08) K/mm3 Sodium (136-145) mEq/L Potassium (3.5-5.1) mEq/L Chloride (98-107) mEq/L Carbon Dioxide (21-32) mEq/L Anion Gap (5-15) BUN (7-18) mg/dL Creatinine (0.7-1.3) mg/dL Est Cr Clr Drug Dosing mL/min Estimated GFR (MDRD) (>60) mL/min BUN/Creatinine Ratio (14-18) Glucose (70-99) mg/dL Calcium (8.5-10.1) mg/dL Magnesium (1.8-2.4) mg/dL Total Bilirubin (0.2-1.0) mg/dL AST (15-37) U/L ALT (16-63) U/L Alkaline Phosphatase (46-116) U/L Total Protein (6.4-8.2) g/dl Albumin (3.4-5.0) g/dl Globulin gm/dL Albumin/Globulin Ratio (1-2) TSH 3rd Generation (0.358-3.74) uIU/mL Salicylates (2.8-20) mg/dL Acetaminophen (10-30) ug/mL Ethyl Alcohol (0.00) gm% SARS-CoV-2 RNA (JANNA) Negative (NEGATIVE) Medications Generic Name Dose Route Start Last Admin Trade Name Dexterq PRN Reason Stop Dose Admin Dextrose/Lactated Ringer's 1,000 mls @ 150 mls/hr 09/02/20 18:15 09/02/20 18:32 Dextrose 5%-Lactated Ringers IV 150 mls/hr ASDIRECTED ANABELLA Administration Sodium Chloride 10 ml 09/02/20 17:59 09/02/20 18:32 Sodium Chloride 0.9% 10 Ml Syringe FLUSH 10 ml ASDIRECTED PRN Administration Keep Vein Open Discontinued Medications Generic Name Dose Route Start Last Admin Trade Name Dilma PRN Reason Stop Dose Admin Lorazepam 1 mg 09/02/20 19:48 Lorazepam 1 Mg Tab PO 09/02/20 19:49 ONETIME ONE Re-Assessment/Re-Exam: Hematology reveals a WBC of 9.31, hemoglobin 14.6, hematocrit 43.8, platelet count 155, chemistry reveals a sodium of 138, potassium 3.6, anion gap 12.6, BUN 27, creatinine 1.1, glucose 106, magnesium 1.6, AST 80, ALT 85, total protein 6.7, albumin 3.1, TSH 1.849, toxicology reveals a salicylate level of 0.7, Tylenol level of 0, alcohol level 0.01, patient is Covid negative. Patient's lab work is fairly stable. His blood alcohol is nearly 0. He does have some fine tremors noted. I have talked with the patient and discussed the best plan for him. He is willing and does want help for his drinking. I recommended that he go to [facility] at 830 tomorrow morning for an intake evaluation. I discussed that he absolutely cannot drink from now until he goes and has his intake at [facility]. I am going to give him 1 mg of Ativan p.o. now and I will send one home for him to take first thing in the morning. I discussed at length the fact that he absolutely cannot drink if I send him home with Ativan. He states that he understands this and he will not. He states that it is just a little over 12 hours before he can check into [facility] and he should be able to go that long without drinking. The patient's is sitting in the room and she is also agreeable to this plan. Departure - Departure Time of Disposition: 19:55 Disposition: Home, Self-Care 01 Condition: Fair Clinical Impression: Alcohol abuse - Discharge Information Instructions: Finding Treatment for Addiction, Alcohol Use Disorder Referrals: Caroline Montes MD [Primary Care Provider] - Forms: ED Department Discharge Additional Instructions: You were seen in the emergency department with request to help you stop drinking. Lab work was completed. Your blood alcohol at this time was 0.01. You did receive IV fluids. You were giving medication in the emergency department called [place] to help with your symptoms of alcohol detox. You state that you will not drink for the next 12-1/2 hours and you will show up to [facility] tomorrow morning at 8:00 in the morning for an intake evaluation. They can give you assistance there and resources to help you stop drinking. I have also given you 1 Ativan tablet to take home and take first thing in the morning when you wake to help with your symptoms of alcohol withdrawal. Again you cannot drink while taking this medication and you did give me a verbal agreement that you would not. [facility] [address] Should your condition worsen or change, do not hesitate returning to the ED. Sepsis Event Note (ED) - Evaluation Sepsis Screening Result: No Definite Risk - Focused Exam Vital Signs: Vital Signs Temp Pulse Resp BP Pulse Ox 09/02/20 17:10 98.8 F 74 20 153/100 H 97 - My Orders Last 24 Hours: My Active Orders 09/02/20 17:59 EKG Documentation Completion [RC] STAT Sodium Chloride 0.9% [Saline Flush] 10 ml FLUSH ASDIRECTED PRN Saline Lock Insert [OM.PC] Stat 09/02/20 18:15 Dextrose 5%-Lactated Ringers 1,000 ml IV ASDIRECTED 09/02/20 19:35 DRUG SCREEN, URINE [URCHEM] Stat UA RFX ARNOLD AND CULT IF INDIC [URIN] Stat - Assessment/Plan Last 24 Hours: My Active Orders 09/02/20 17:59 EKG Documentation Completion [RC] STAT Sodium Chloride 0.9% [Saline Flush] 10 ml FLUSH ASDIRECTED PRN Saline Lock Insert [OM.PC] Stat 09/02/20 18:15 Dextrose 5%-Lactated Ringers 1,000 ml IV ASDIRECTED 09/02/20 19:35 DRUG SCREEN, URINE [URCHEM] Stat UA RFX ARNOLD AND CULT IF INDIC [URIN] Stat
[2020-09-02] MEDS ORDERED: Dextrose 5%-Lactated Ringers 1,000 ML IV SCH (18:15)
[2020-09-02 19:13] LABS: ACETAMINOPHEN 0 ug/mL (10-30)
[2020-09-02] MEDS ORDERED: LORazepam 1 MG Tab PO ONE ×2 (19:48→19:54)
== END 2020-09-02 20:25 | disposition home or self-care (01) ==
LOC: JD.ED 16:33
DX: F10.10 Alcohol abuse, uncomplicated (principal); I25.10 Atherosclerotic heart disease of native coronary artery without angina pectoris; I10 Essential (primary) hypertension; I25.2 Old myocardial infarction; E78.00 Pure hypercholesterolemia, unspecified; K21.9 Gastro-esophageal reflux disease without esophagitis; Z20.822 Contact with and (suspected) exposure to COVID-19; Z79.02 Long term (current) use of antithrombotics/antiplatelets; Z79.899 Other long term (current) drug therapy; Z91.013 Allergy to seafood
CPT/HCPCS: 36415; 80053; 80143; 80179; 80306; 80307; 81001; 83735; 84443; 85025; 93005; 99284; A9270; J7121; U0002; 93010

== ENCOUNTER 2022-07-27 12:18 | Emergency (ER) | payer MEDICARE, OTHER ==
[2022-07-27 12:38] VITALS: BP 189/107; PULSE 54
[2022-07-27 14:06] LABS: ESTIMATED GFR 53 mL/min (>60)
[2022-07-27] MEDS ORDERED: HYDROmorphone 1 MG/ML Syringe IM ONE (16:25)
== END 2022-07-27 17:25 | disposition home or self-care (01) ==
LOC: JD.ED 12:18
DX: F10.10 Alcohol abuse, uncomplicated (principal); I25.10 Atherosclerotic heart disease of native coronary artery without angina pectoris; E78.00 Pure hypercholesterolemia, unspecified; I10 Essential (primary) hypertension; I25.2 Old myocardial infarction; N40.0 Benign prostatic hyperplasia without lower urinary tract symptoms; Z91.013 Allergy to seafood; Z79.899 Other long term (current) drug therapy; Z79.02 Long term (current) use of antithrombotics/antiplatelets; Y90.1 Blood alcohol level of 20-39 mg/100 ml
CPT/HCPCS: 36415; 80053; 80306; 80307; 81001; 83735; 85025; 85610; 96372; 99284; J1170; 99283